=== PATIENT | male | born 1960 | race Caucasian/White ===

== ENCOUNTER 2021-06-04 15:23 | Observation (INO) | payer BC ==
[~2021-06-04] VITALS: Ht 172.7 cm; Wt 106.9 kg
[2021-06-04] MEDS ORDERED: RACEPINEPHrine 2.25 % UD INHA NEB ONE (16:25)
[2021-06-04] MEDS ORDERED: NS 1,000 ML IV ONE (16:25)
[2021-06-04] MEDS ORDERED: FAMOTIDINE INJ 20MG/2ML VIAL (S0028 PER 1) IVP ONE (16:25)
[2021-06-04] MEDS: IPRATROPIUM 0.5MG/ALBUTEROL 2.5MG INH SOL UD 3ML (DUONEB) NEB SCH ×3 (16:41→17:33)
[2021-06-04 16:48] LABS: BASO % 0.3 % (0.0-1.0); EOS # 0.1 10^3/uL (0.0-0.5); EOS % 0.5 % (0.0-3.0); HEMATOCRIT 39.3 % (42.0-52.0); HEMOGLOBIN 13.5 g/dl (13.5-17.5); LYMPH % 9.3 % (24.0-44.0); MEAN CORPUSCULAR HEMOGLOBIN 31.3 pg (27.0-33.0); MEAN CORPUSCULAR HGB CONC 34.4 g/dl (32.0-36.5); MONO # 0.5 10^3/uL (0.0-0.8); MONO % 5.2 % (2.0-8.0); NEUTROPHILS # 8.8 10^3/uL (1.5-8.5); NEUTROPHILS % 84.4 % (36.0-66.0); PLATELET COUNT, AUTOMATED 208 10^3/uL (150-450); RED BLOOD COUNT 4.32 10^6/uL (4.30-6.10); WHITE BLOOD COUNT 10.4 10^3/uL (4.0-10.0)
--- NOTE | 2021-06-04 16:50 | REP ---
INDICATION: DYSPNEA/COUGH COMPARISON: None. TECHNIQUE: Portable AP view of the chest FINDINGS: The mediastinum and cardiac silhouette are within normal limits for portable technique. The lung phillips are clear without acute consolidation, effusion, or pneumothorax. Skeletal structures are intact. IMPRESSION: No acute cardiopulmonary process appreciated. <Electronically signed by Barry Hector > 06/04/21 [id number]
[2021-06-04 17:09] LABS: ERYTHROCYTE SEDIMENTATION RATE 10 mm/hr (0-20)
[2021-06-04] MEDS ORDERED: FISH1000 PO (17:10)
[2021-06-04] MEDS ORDERED: FLOM0.4C39 PO (17:10)
[2021-06-04] MEDS ORDERED: LOSA25TA14 PO (17:10)
[2021-06-04] MEDS ORDERED: SEMA1PEN2 SQ (17:10)
[2021-06-04] MEDS ORDERED: B-122500 PO (17:13)
[2021-06-04] MEDS ORDERED: PYRI100L PO (17:13)
[2021-06-04] MEDS ORDERED: TRES1INJ2 SC (17:13)
[2021-06-04] MEDS ORDERED: HYDR12.55 PO (17:14)
[2021-06-04] MEDS ORDERED: METF500T13 PO (17:14)
[2021-06-04] MEDS ORDERED: LYRI150C PO (17:14)
[2021-06-04] MEDS ORDERED: ASPI81CH33 PO (17:14)
[2021-06-04 17:17] LABS: ALBUMIN 3.9 GM/DL (3.2-5.2); ALT/SGPT 41 U/L (12-78); BILIRUBIN,DIRECT 0.2 MG/DL (0.0-0.2); BILIRUBIN,TOTAL 0.4 MG/DL (0.2-1.0); BLOOD UREA NITROGEN 7 MG/DL (7-18); C REACTIVE PROTEIN QUANTITATIV 0.41 MG/DL (0.00-0.30); CALCIUM LEVEL 8.7 MG/DL (8.8-10.2); CARBON DIOXIDE LEVEL 23 MEQ/L (21-32); CHLORIDE LEVEL 99 MEQ/L (98-107); CREATININE FOR GFR 0.83 MG/DL (0.70-1.30); GLOMERULAR FILTRATION RATE > 60.0 (>49); GLUCOSE, FASTING 266 MG/DL (70-100); POTASSIUM SERUM 3.8 MEQ/L (3.5-5.1); SODIUM LEVEL 133 MEQ/L (136-145); TOTAL PROTEIN 7.4 GM/DL (6.4-8.2)
[2021-06-04] MEDS ORDERED: MAALOX 30 ML SUSP *UDC PO PRN (17:55)
[2021-06-04] MEDS ORDERED: MOM 30ML SUSPENSION UDC PO PRN (17:55)
[2021-06-04] MEDS ORDERED: LEVALBUTEROL HFA 45MCG/ACT 15 GM INHALER INH PRN (17:55)
[2021-06-04] MEDS ORDERED: ACETAMINOPHEN TAB 650MG DOSE (2X325MG) PO PRN (17:55)
[2021-06-04] MEDS ORDERED: GLUCAGON INJ 1MG VIAL SC PRN (18:00)
[2021-06-04] MEDS ORDERED: DEXTROSE 50% 50 ML SYRINGE IV PRN (18:00)
[2021-06-04] MEDS ORDERED: GLUCOSE 4GM CHEW TABLET PO PRN (18:00)
--- NOTE | 2021-06-04 18:17 | HPEPDOC ---
[facility] Medical History & Physical Date of Admission Jun 04, 2021 Date of Service: Jun 04, 2021 History and Physical CHIEF COMPLAINT: Oral swelling and dyspnea HISTORY OF PRESENT ILLNESS: 61-year-old male with a past history of hypertension, diabetes mellitus type 2, obesity, BPH, presented to the ER via EMS after he developed significant oral and facial swelling with difficulty breathing. Patient reports eating clams yesterday at a camp and was shocking more about to make addition, when he resided and subsequently developed significant respiratory distress and swelling is tongue and lips and throat. Per report, patient is able to find an EpiPen at the camp was taken to urgent care where he received IV Solu-Medrol additional dose of epinephrine and EMS was called. In ER, was diagnosed with angioedema. He was given 20 mg IV famotidine, racemic epinephrine, DuoNeb treatment and 1 L bolus. She was evaluated by Dr. Mesha dia from ENT who performed flexible laryngoscopy. It is determined that swelling was of anterior airway. Patient was also evaluated by anesthesia service, Dr. Banegas. Patient was advised to be admitted to ICU for observation and to maintain 2 nasal trumpets at bedside. Patient denies chest pain, seizures of breath, palpitations, nausea, vomiting, diarrhea at this time. Patient is found to be tachycardic, I suspect due to administration of epinephrine as well as albuterol. PAST MEDICAL HISTORY: DM2 HTN BPH Obesity PAST SURGICAL HISTORY: C spine surgery, plate and screws L shoulder surgery. SOCIAL HISTORY: denies smoking drinks 4 beers per night denies illicit drug use FAMILY HISTORY: reviewed with patient, no pertinent history given ALLERGIES: Please see below. REVIEW OF SYSTEMS: 10 point ROS conducted, relevant findings are noted in HPI HOME MEDICATIONS: Please see below. PHYSICAL EXAMINATION: VITAL SIGNS: please see below General: NAD, comfortable, muffled voice HEENT: PERRLA, EOMI, sclerae clear Neck: supple, normal ROM, no JVD Respiratory: lungs CTAB, no wheeze, no rales, no crackles CVS: RRR, normal S1, S2, no murmurs Abdo: soft, no masses, no hepatosplenomegaly, BS+, no rebound tenderness Extremities: no edema, pulses 2+ MSK: no joint deformities, normal ROM Neuro: no focal neuro deficits, moving all 4 extremities, CN2-12 intact. Strength 5/5 in all 4 extremities. No nystagmus. Psych: calm, cooperative, AAO x 3 LABORATORY DATA: See below. IMAGING: CXR (06/04/21): FINDINGS: The mediastinum and cardiac silhouette are within normal limits for portable technique. The lung phillips are clear without acute consolidation, effusion, or pneumothorax. Skeletal structures are intact. IMPRESSION: No acute cardiopulmonary process appreciated. MICROBIOLOGY: Please see below. ASSESSMENT: 61-year-old male with history of hypertension and type 2 diabetes mellitus, presented with angioedema of the airway after exposure to clams at 2 PM this afternoon. Patient received racemic epinephrine EpiPen 2 IV Solu- Medrol. Was examined by Dr. Candelaria from ENT showing anterior airway edema. Patient will be admitted to ICU for observation. PLAN: Airway angioedema: - 2/2 clam exposure - received famotidine, racemic epi, duoneb, solumedrol 125 mg IV via EMS and epipen x 2 - eval by Dr. Yap in ER. No posterior airway edema. - recommended decadron 6 mg IV q6h, humidified O2, elevated head of bed - to keep 2 nasal trumpets at bedside in event of worsening airway - Dr. Banegas from anesthesia is aware. - Admit to ICU for obs - keep strict NPO - C4 complement level ordered Tachycardia - suspect 2/2 epinephrine and albuterol use - monitor - tele DM2 - NPO - IV d5 1/2 NS at 125 - ISS q6h - FSBS q6h - hypoglycemia precautions Suspect etoh use disorder - last drink yesterday - CIWA protocol ordered Dispo: pending clinical improvement. Vital Signs Vital Signs Date Time Temp Pulse Resp B/P (MAP) Pulse Ox O2 Delivery O2 Flow Rate FiO2 06/04/21 17:35 114 24 94 Nasal Cannula 4.0 06/04/21 17:20 168/77 (107) 06/04/21 15:53 97.7 100 Laboratory Data Labs 24H Laboratory Tests 2 06/04/21 16:27: Immature Granulocyte % (Auto) 0.3, Neutrophils (%) (Auto) 84.4H, Lymphocytes (%) (Auto) 9.3L, Monocytes (%) (Auto) 5.2, Eosinophils (%) (Auto) 0.5, Basophils (%) (Auto) 0.3, Neutrophils # (Auto) 8.8H, Lymphocytes # (Auto) 1.0L, Monocytes # (Auto) 0.5, Eosinophils # (Auto) 0.1, Basophils # (Auto) 0.0, Nucleated Red Blood Cells % (auto) 0.0, Erythrocyte Sedimentation Rate 10, Anion Gap 11, Glomerular Filtration Rate > 60.0, Calcium Level 8.7L, Total Bilirubin 0.4, Direct Bilirubin 0.2, Aspartate Amino Transf (AST/SGOT) 58H, Alanine Aminotransferase (ALT/SGPT) 41, Alkaline Phosphatase 68, C-Reactive Protein, Quantitative 0.41H, Total Protein 7.4, Albumin 3.9, Albumin/Globulin Ratio 1.1 CBC/BMP Laboratory Tests 06/04/21 16:27 Home Medications Scheduled Aspirin (Aspirin) 81 Mg Tab.chew, 81 MG PO DAILY Atorvastatin Calcium (Atorvastatin Calcium) 80 Mg Tablet, 80 MG PO QHS Cyanocobalamin (Vitamin B-12) (Vitamin B12) 2,500 Mcg Tablet, 2,500 MCG PO DAILY Esomeprazole Magnesium (Esomeprazole Magnesium Dr) 40 Mg Capsule.dr, 40 MG PO DAILY Insulin Degludec (Tresiba Flextouch U-200) 200 Unit/1 Ml Insuln.pen, 40 UNIT SC QHS Losartan/Hydrochlorothiazide (Losartan-Hctz 50-12.5 mg Tab) 1 Each Tablet, 1 TAB PO DAILY Metformin HCl (Metformin HCl ER) 500 Mg Tab.er.24h, 500 MG PO BID [place]-3 Fatty Acids/Fish Oil (Fish Oil 1,000 mg Capsule) 1 Each Capsule, 1,000 MG PO DAILY Pregabalin (Lyrica) 150 Mg Capsule, 150 MG PO BID Pyridoxine HCl (Vitamin B6) (Vitamin B-6) 100 Mg Tablet, 100 MG PO DAILY Semaglutide (Ozempic) 0.25 Mg/0.2 Ml Pen.injctr, 0.5 MG SC 1XWK SUNDAYS Tamsulosin HCl (Flomax) 0.4 Mg Capsule, 0.4 MG PO DAILY Scheduled PRN Oxycodone HCl (Oxycodone HCl) 10 Mg Tablet, 10 MG PO BID PRN for PAIN LEVEL 5-10 Allergies Coded Allergies: No Known Allergies (Unverified , 06/04/21) MAYUR LAINEZ MD Jun 04, 2021 18:17
[2021-06-04] MEDS ORDERED: ATOR80TA59 PO (18:22)
[2021-06-04] MEDS ORDERED: ESOM40CA35 PO (18:22)
[2021-06-04] MEDS ORDERED: OZEM2INJ SC (18:22)
[2021-06-04] MEDS ORDERED: LOSA50TA5 PO (18:22)
[2021-06-04] MEDS ORDERED: TRES1INJ SC (18:22)
[2021-06-04] MEDS ORDERED: METF-838 PO (18:22)
[2021-06-04] MEDS ORDERED: OXYC10TA12 PO (18:22)
[2021-06-04] MEDS ORDERED: VITA100T14 PO (18:59)
--- NOTE | 2021-06-04 19:10 | ECGEPIP ---
[facility] - ED Test Date: 2021-06-04 Pat Name: CHERISE CHO Department: Room: - Gender: Male Riding Double: CATE : 1960 Requested By: Luis Esquivel Order Number: [id number] Reading MD: Luis Esquivel Measurements Intervals [place] Rate: 117 P: 56 AR: 160 QRS: -9 QRSD: 106 T: 16 QT: 338 QTc: 471 Interpretive Statements Sinus tachycardia leftward axis Nonspecific ST T wave changes Borderline prolonged QTc No prior ECG for comparison Electronically Signed on 06-04-2021 19:10:09 EDT by Luis Esquivel
[2021-06-04] MEDS: D5W/0.45% SODIUM CHLORIDE 1,000 ML IV SCH (19:29)
[2021-06-04 20:41] LABS: RSV AMPLIFICATION NEGATIVE (NEGATIVE)
[2021-06-04] MEDS: DOCUSATE SODIUM 100MG CAPSULE PO SCH (21:00)
[2021-06-04] MEDS ORDERED: PANTOPRAZOLE 40MG VIAL (C9113 PER 1) IV SCH (21:00)
[2021-06-04 21:22] VITALS: BP 175/90
[2021-06-04] MEDS: dexameTHASONE 4 MG/ML 1ML VIAL (J1100 PER 1MG) IV SCH (21:54)
[2021-06-04 21:58] LABS: COMPLEMENT C4 22 MG/DL (10-40)
[2021-06-04] MEDS: MORPHINE 2 MG/ML 1ML VIAL (J2270) IV PRN (21:58)
[2021-06-04 22:00] VITALS: BP 182/89
[2021-06-04 22:02] VITALS: BP 160/77
[2021-06-04] MEDS ORDERED: LORazepam 2 MG/ML VIAL IV PRN (23:15)
[2021-06-05] VITALS (9 sets, daily range): BP systolic 148–173; BP diastolic 67–84
[2021-06-05] MEDS: HumaLOG INSULIN (NovoLOG) PER UNIT SC SCH ×2 (00:10→06:00)
[2021-06-05] MEDS: D5W/0.45% SODIUM CHLORIDE 1,000 ML IV SCH (04:13)
[2021-06-05] MEDS: dexameTHASONE 4 MG/ML 1ML VIAL (J1100 PER 1MG) IV SCH ×2 (04:13→09:16)
[2021-06-05 04:32] LABS: HEMATOCRIT 39.9 % (42.0-52.0); HEMOGLOBIN 13.5 g/dl (13.5-17.5); LYMPH # 0.5 10^3/uL (1.5-5.0); LYMPH % 6.3 % (24.0-44.0); MEAN CORPUSCULAR HEMOGLOBIN 30.6 pg (27.0-33.0); MEAN CORPUSCULAR HGB CONC 33.8 g/dl (32.0-36.5); MEAN CORPUSCULAR VOLUME 90.5 fl (80.0-96.0); MONO # 0.1 10^3/uL (0.0-0.8); MONO % 1.7 % (2.0-8.0); NEUTROPHILS # 7.1 10^3/uL (1.5-8.5); NEUTROPHILS % 91.6 % (36.0-66.0); PLATELET COUNT, AUTOMATED 195 10^3/uL (150-450); RED BLOOD COUNT 4.41 10^6/uL (4.30-6.10); WHITE BLOOD COUNT 7.8 10^3/uL (4.0-10.0)
[2021-06-05 04:53] LABS: ALBUMIN 3.5 GM/DL (3.2-5.2); ALT/SGPT 40 U/L (12-78); BILIRUBIN,TOTAL 0.5 MG/DL (0.2-1.0); BLOOD UREA NITROGEN 9 MG/DL (7-18); CALCIUM LEVEL 9.2 MG/DL (8.8-10.2); CARBON DIOXIDE LEVEL 27 MEQ/L (21-32); CHLORIDE LEVEL 104 MEQ/L (98-107); CREATININE FOR GFR 0.66 MG/DL (0.70-1.30); GLOMERULAR FILTRATION RATE > 60.0 (>49); GLUCOSE, FASTING 248 MG/DL (70-100); MAGNESIUM LEVEL 2.1 MG/DL (1.8-2.4); POTASSIUM SERUM 3.7 MEQ/L (3.5-5.1); SODIUM LEVEL 138 MEQ/L (136-145); TOTAL PROTEIN 7.6 GM/DL (6.4-8.2)
[2021-06-05] MEDS ORDERED: FAMOTIDINE IV BAG 20 MG in IV 1 EA IV SCH (06:00)
[2021-06-05] MEDS: MORPHINE 2 MG/ML 1ML VIAL (J2270) IV PRN (07:42)
[2021-06-05] MEDS ORDERED: FOLIC ACID 1 MG TAB PO SCH (09:00)
[2021-06-05] MEDS ORDERED: MULTIVITAMINS/MINERALS THERAP 1 TAB PO SCH (09:00)
[2021-06-05] MEDS: DOCUSATE SODIUM 100MG CAPSULE PO SCH (09:00)
[2021-06-05] MEDS ORDERED: THIAMINE 100 MG TAB PO SCH (09:00)
[2021-06-05] MEDS ORDERED: EPIN0.3I11 IM (10:44)
[2021-06-05] MEDS ORDERED: THIA100TA PO (10:44)
[2021-06-05] MEDS ORDERED: FAMO20TA PO (10:44)
[2021-06-05] MEDS ORDERED: VITMTA PO (10:44)
[2021-06-05] MEDS ORDERED: TRES1INJ SC (10:46)
--- NOTE | 2021-06-05 11:04 | DS.PDOC ---
Discharge Summary General Date of Admission Jun 04, 2021 at 15:24 Date of Discharge 06/05/21 Discharge Summary PROCEDURES PERFORMED DURING STAY: [None]. COMPLICATIONS/CHIEF COMPLAINT: Allergic Reaction, Angioedema. HISTORY OF PRESENT ILLNESS: 61-year-old male with a past history of hypertension, diabetes mellitus type 2, obesity, BPH, presented to the ER via EMS after he developed significant oral and facial swelling with difficulty breathing. Patient reports eating clams yesterday at a camp and was shocking more about to make addition, when he resided and subsequently developed significant respiratory distress and swelling is tongue and lips and throat. Per report, patient is able to find an EpiPen at the camp was taken to urgent care where he received IV Solu-Medrol additional dose of epinephrine and EMS was called. In ER, was diagnosed with angioedema. He was given 20 mg IV famotidine, racemic epinephrine, DuoNeb treatment and 1 L bolus. She was evaluated by Dr. Yap from ENT who performed flexible laryngoscopy. It is determined that swelling was of anterior airway. Patient was also evaluated by anesthesia service, Dr. Banegas. Patient was advised to be admitted to ICU for observation and to maintain 2 nasal trumpets at bedside. Patient denies chest pain, seizures of breath, palpitations, nausea, vomiting, diarrhea at this time. Patient is found to be tachycardic, I suspect due to administration of epinephrine as well as albuterol. HOSPITAL COURSE: Airway angioedema: - 2/2 clam exposure - received famotidine, racemic epi, duoneb, solumedrol 125 mg IV via EMS and epipen x 2 - eval by Dr. Yap in ER. No posterior airway edema. Received decadron 6 mg IV q6h. - was re-evaluated in the AM by Dr. Yap. Cleared for DC home, recommended no steroid taper. Avoid shellfish - no acute events while monitored in ICU. Nasal trumpets were bedside. - given Rx for epipen x 2. - strict avoidance of shellfish instructions given - to follow up with PCP for supervisor [employer] duplicating unit referral and follow up on complement levels. Tachycardia - Improved, received epinephrine, albuterol on admission. DM2 - Patient was kept nothing by mouth on D5 half normal saline until his evaluation by speech therapy, who cleared him for regular consistent carbohydrate diet. - increased home dose levemir to 50 units qhs from 40, given elevated BG. Suspect etoh use disorder - last drink yesterday - CIWA protocol ordered - not in acute withdrawal, no tremulousness, alert and oriented x 3. CIWA 0 throughout admission. DISCHARGE MEDICATIONS: Please see below. ALLERGIES: Please see below. PHYSICAL EXAMINATION ON DISCHARGE: VITAL SIGNS: please see below General: NAD, comfortable HEENT: PERRLA, EOMI, sclerae clear Neck: supple, normal ROM, no JVD Respiratory: lungs CTAB, no wheeze, no rales, no crackles CVS: RRR, normal S1, S2, no murmurs Abdo: soft, no masses, no hepatosplenomegaly, BS+, no rebound tenderness Extremities: no edema, pulses 2+ MSK: no joint deformities, normal ROM Neuro: no focal neuro deficits, moving all 4 extremities, CN2-12 intact. Strength 5/5 in all 4 extremities. No nystagmus. Psych: calm, cooperative, AAO x 3 LABORATORY DATA: Please see below. IMAGING: PROGNOSIS: ACTIVITY: [As tolerated]. DIET: consistent carbohydrate. Was assessed by speech therapy, cleared for PO intake on DC. DISCHARGE PLAN: DC home, follow up with PCP 3-5 days. Obtain referral to allergy services from PCP. Epipen rx given. Increased dose of home levemir to 50 untis qhs. ADVISED REPEATEDLY TO AVOID SHELLFISH SUCH LOBSTER, SHRIMP, CRAB, CLAMS, OYSTERS, MUSSELS etc. DISPOSITION: home with self care DISCHARGE INSTRUCTIONS: . Please follow-up with your primary care doctor within 3-5 days . Please request referral to supervisor [employer] duplicating unit from your prp . Please taking medications as prescribed. You have been prescribed 2 epipens for use in case of severe allergic reaction, trouble breathing. . AVOID ALL SHELLFISH IE LOBSTER,CLAMS, OYSTERS, CRAB, SHRIMP . please abstain from alcohol . If you develop bleeding, chest pain, shortness of breath, seizures, nausea, fevers, or otherwise worsening of your symptoms, please call 911 or return to the nearest emergency room ITEMS TO FOLLOWUP ON ON OUTPATIENT: Allergy complement panel DISCHARGE CONDITION: [Stable]. TIME SPENT ON DISCHARGE: 35 minutes Vital Signs/I&Os Vital Signs Date Time Temp Pulse Resp B/P (MAP) Pulse Ox O2 Delivery O2 Flow Rate FiO2 06/05/21 10:00 93 18 156/80 (105) 94 Room Air 06/05/21 08:00 98.1 2.0 06/04/21 15:53 100 I&O- Last 24 Hours up to 6 AM 06/05/21 05:59 Intake Total 2250 ml Output Total 3345 ml Balance -1095 ml Laboratory Data Labs 24H Laboratory Tests 2 06/04/21 16:27: Immature Granulocyte % (Auto) 0.3, Neutrophils (%) (Auto) 84.4H, Lymphocytes (%) (Auto) 9.3L, Monocytes (%) (Auto) 5.2, Eosinophils (%) (Auto) 0.5, Basophils (%) (Auto) 0.3, Neutrophils # (Auto) 8.8H, Lymphocytes # (Auto) 1.0L, Monocytes # (Auto) 0.5, Eosinophils # (Auto) 0.1, Basophils # (Auto) 0.0, Nucleated Red Blood Cells % (auto) 0.0, Erythrocyte Sedimentation Rate 10, Anion Gap 11, Glomerular Filtration Rate > 60.0, Calcium Level 8.7L, Total Bilirubin 0.4, Direct Bilirubin 0.2, Aspartate Amino Transf (AST/SGOT) 58H, Alanine Aminotransferase (ALT/SGPT) 41, Alkaline Phosphatase 68, C-Reactive Protein, Quantitative 0.41H, Total Protein 7.4, Albumin 3.9, Albumin/Globulin Ratio 1.1, Complement C4 22 06/04/21 18:37: 06/04/21 19:56: Coronavirus (COVID-19)(PCR) NEGATIVE, Influenza Type A (RT-PCR) NEGATIVE, Influenza Type B (RT-PCR) NEGATIVE, Respiratory Syncytial Virus (PCR) NEGATIVE 06/05/21 00:04: Bedside Glucose (Misc Panel) 283H 06/05/21 04:11: Immature Granulocyte % (Auto) 0.4, Neutrophils (%) (Auto) 91.6H, Lymphocytes (%) (Auto) 6.3L, Monocytes (%) (Auto) 1.7L, Eosinophils (%) (Auto) 0.0, Basophils (%) (Auto) 0.0, Neutrophils # (Auto) 7.1, Lymphocytes # (Auto) 0.5L, Monocytes # (Auto) 0.1, Eosinophils # (Auto) 0.0, Basophils # (Auto) 0.0, Nucleated Red Blood Cells % (auto) 0.0, Anion Gap 7L, Glomerular Filtration Rate > 60.0, Calcium Level 9.2, Magnesium Level 2.1, Total Bilirubin 0.5, Aspartate Amino Transf (AST/SGOT) 40H, Alanine Aminotransferase (ALT/SGPT) 40, Alkaline Phosphatase 63, Total Protein 7.6, Albumin 3.5, Albumin/Globulin Ratio 0.9 06/05/21 05:24: Bedside Glucose (Misc Panel) 243H CBC/BMP Laboratory Tests 06/04/21 16:27 06/05/21 04:11 FSBS Laboratory Tests Test 06/05/21 00:04 06/05/21 05:24 Range/Units Bedside Glucose (Misc Panel) 283 243 80-115 MG/DL Discharge Medications Scheduled Aspirin (Aspirin) 81 Mg Tab.chew, 81 MG PO DAILY, (Reported) Atorvastatin Calcium (Atorvastatin Calcium) 80 Mg Tablet, 80 MG PO QHS, (Reported) Cyanocobalamin (Vitamin B-12) (Vitamin B12) 2,500 Mcg Tablet, 2,500 MCG PO DAILY, (Reported) Epinephrine (Epinephrine) 0.3 Mg/0.3 Ml Auto.injct, 1 SYRINGE IM ONCE Esomeprazole Magnesium (Esomeprazole Magnesium Dr) 40 Mg Capsule.dr, 40 MG PO DAILY, (Reported) Famotidine (Famotidine) 20 Mg Tablet, 20 MG PO BID Insulin Degludec (Tresiba Flextouch U-200) 200 Unit/1 Ml Insuln.pen, 50 UNIT SC QHS Losartan/Hydrochlorothiazide (Losartan-Hctz 50-12.5 mg Tab) 1 Each Tablet, 1 TAB PO DAILY, (Reported) Metformin HCl (Metformin HCl ER) 500 Mg Tab.er.24h, 500 MG PO BID, (Reported) Multivitamins (Thera M Plus Tablet) 1 Each Tablet, 1 TAB PO DAILY [place]-3 Fatty Acids/Fish Oil (Fish Oil 1,000 mg Capsule) 1 Each Capsule, 1,000 MG PO DAILY, (Reported) Pregabalin (Lyrica) 150 Mg Capsule, 150 MG PO BID, (Reported) Pyridoxine HCl (Vitamin B6) (Vitamin B-6) 100 Mg Tablet, 100 MG PO DAILY, (Reported) Semaglutide (Ozempic) 0.25 Mg/0.2 Ml Pen.injctr, 0.5 MG SC 1XWK, (Reported) SUNDAYS Tamsulosin HCl (Flomax) 0.4 Mg Capsule, 0.4 MG PO DAILY, (Reported) Thiamine Hcl (Vitamin B-1) 100 Mg Tablet, 100 MG PO DAILY Scheduled PRN Oxycodone HCl (Oxycodone HCl) 10 Mg Tablet, 10 MG PO BID PRN for PAIN LEVEL 5- 10, (Reported) Allergies Coded Allergies: clams (Verified Allergy, Severe, 06/05/21) MAYUR LAINEZ MD Jun 05, 2021 11:03
--- NOTE | 2021-06-05 11:54 | IPNPDOC ---
Text Note Date of Service The patient was seen on 06/05/21. NOTE This is a 61 yo male with no prior allergy history splashed his eye while shuc debbie clams and immedeiately develope swelling in his throat, dysphagia and troouble breathing There was no hoarseness, stridor or drooling He arrived in the ER and was given angioedema protocol immediatley I arrive 20 minutes after the call He is awake alert sitting up in no distress, His voice is slightly hot potato but there is no hoarseness or stridor His resp rate is 18. Oral cavity. Tongue is normal and mobile The soft palate and lateral pharyneal posterior pillars and bands are edematous but not obsturcted. Flexible laryngoscopy shows below the oropharynx there is NO edeam and the laryn x and supraglottis are normal IMP angioedema mostly involving the oral cavity and may be improved greatly already on med protocol PLAN Admit to ICU for obs and medical mangement Nasal trumptets could be used urgently to secure his airway VS,Luis Daniel, I+O VS, Luis Daniel, I+O Laboratory Tests 06/04/21 16:27 06/05/21 04:11 Vital Signs Date Time Temp Pulse Resp B/P (MAP) Pulse Ox O2 Delivery O2 Flow Rate FiO2 06/05/21 10:00 93 18 156/80 (105) 94 Room Air 06/05/21 08:00 2.0 06/05/21 08:00 98.1 06/04/21 15:53 100 I&O- Last 24 Hours up to 6 AM 06/05/21 06:00 Intake Total 2550 ml Output Total 3895 ml Balance -1345 ml ERMIAS ELIZONDO MD Jun 05, 2021 11:54
--- NOTE | 2021-06-05 11:55 | IPNPDOC ---
Text Note Date of Service The patient was seen on 06/05/21. NOTE 18 hours after event he feels fine and back to normal Taking po without difficulty IMP resolved angioedema from shell fish REC Discharge home No gift certificates for RED LOBSTER VS,Fishbone, I+O VS, Fishbone, I+O Laboratory Tests 06/04/21 16:27 06/05/21 04:11 Vital Signs Date Time Temp Pulse Resp B/P (MAP) Pulse Ox O2 Delivery O2 Flow Rate FiO2 06/05/21 10:00 93 18 156/80 (105) 94 Room Air 06/05/21 08:00 2.0 06/05/21 08:00 98.1 06/04/21 15:53 100 I&O- Last 24 Hours up to 6 AM 06/05/21 06:00 Intake Total 2550 ml Output Total 3895 ml Balance -1345 ml ERMIAS ELIZONDO MD Jun 05, 2021 11:55
[2021-06-08 14:12] LABS: C1 ESTER INHIB. NON FUNCTIONAL 28 mg/dL (21-39); C1 ESTERASE INHIB. FUNCTIONAL > 91 (.); COAGULATION FACTOR XII ACTIVIT 99 % (50-150); TRYPTASE 3.5 ug/L (2.2-13.2)
== END 2021-06-05 11:54 | disposition home or self-care (01) ==
LOC: EDBD 15:23 → M ED 15:23 → M ED INP 15:24 → UNDOADMOB 15:24 → ENRESERV 19:46 → M ICU 21:11
PROVIDERS: ADMIT Family Medicine; ATTEND Family Medicine
DX: T78.3XXA Angioneurotic edema, initial encounter (principal); R00.0 Tachycardia, unspecified; R22.0 Localized swelling, mass and lump, head; R06.89 Other abnormalities of breathing; E11.9 Type 2 diabetes mellitus without complications; F10.10 Alcohol abuse, uncomplicated; I10 Essential (primary) hypertension; N40.0 Benign prostatic hyperplasia without lower urinary tract symptoms; E66.9 Obesity, unspecified; Z79.899 Other long term (current) drug therapy; Z79.82 Long term (current) use of aspirin; Z79.4 Long term (current) use of insulin; Z91.013 Allergy to seafood
CPT/HCPCS: 31575; 36415; 71045; 80048; 80053; 80076; 83519; 83735; 85025; 85280; 85652; 86140; 86160; 86161; 86850; 86900; 86901; 87631; 92526; 92610; 93005; 93041; 94640; 94760; 96361; 96374; 96375; 96376; 99285; C9113; J1100; J2270